=== PATIENT | male | born 1970 | race Caucasian/White ===

== ENCOUNTER 2017-06-25 19:15 | Emergency (ER) | payer OTHER ==
[2017-06-25 19:56] LABS: BASOPHILS % (AUTO) 0.4 %; EOSINOPHILS # (AUTO) 0.3 10^3/uL (0.0-0.7); EOSINOPHILS % (AUTO) 3.3 %; HCT - HEMATOCRIT 43.9 % (42.0-52.0); HGB - HEMOGLOBIN 15.3 g/dL (14.0-18.0); LYMPHOCYTES # (AUTO) 2.2 10^3/uL (1.5-3.5); LYMPHOCYTES % (AUTO) 29.4 %; MEAN CORPUSCULAR HEMOGLOBIN 33.3 pg (27.0-31.0); MEAN CORPUSCULAR HGB CONC 34.9 g/dL (32.0-36.0); MEAN CORPUSCULAR VOLUME 95.5 fL (80.0-94.0); MEAN PLATELET VOLUME 9.3 fL (7.4-11.4); MONOCYTES # (AUTO) 0.8 10^3/uL (0.0-1.0); MONOCYTES % (AUTO) 10.2 %; NEUTROPHILS # (AUTO) 4.3 10^3/uL (1.5-6.6); NEUTROPHILS % (AUTO) 56.7 %; NUCLEATED RED BLOOD CELLS AUTO 0.1 /100WBC; UNCORRECTED WHITE BLOOD COUNT 7.6 x10^3/uL; WHITE BLOOD COUNT 7.6 x10^3/uL (4.8-10.8)
[2017-06-25 20:04] LABS: ALBUMIN/GLOBULIN RATIO 1.4 (1.0-2.2); BILIRUBIN,TOTAL 0.4 mg/dL (0.2-1.0); CREATININE 1.1 mg/dL (0.6-1.2); POTASSIUM 3.9 mmol/L (3.5-5.0)
--- NOTE | 2017-06-25 20:20 | CT Preliminary Report ---
Exam: CT HEAD W/O IMPRESSION: No acute intracranial abnormality. [facility] SITE ID: [id number]
--- NOTE | 2017-06-25 20:22 | CT Report ---
EXAM: CT HEAD EXAM DATE: 06/25/2017 08:06 PM. CLINICAL HISTORY: Syncope, head injury. COMPARISON: None. TECHNIQUE: Multiaxial CT images were obtained from the foramen magnum to the vertex. Reformats: Coron al. IV contrast: None. In accordance with CT protocol optimization, one or more of the following dose reduction techniques w ere utilized for this exam: automated exposure control, adjustment of mA and/or KV based on patient s ize, or use of iterative reconstructive technique. FINDINGS: Parenchyma: No intraparenchymal hemorrhage. No evidence of mass, midline shift, or CT findings of inf arction. [place]-white differentiation is distinct. Extraaxial Spaces: Normal for age. No subdural or epidural collections identified. Ventricles: Normal in size and position. Sinuses and Orbits: Imaged paranasal sinuses, orbits, and mastoids show no significant abnormality. Bones: No evidence of fracture or calvarial defect. Other: None. IMPRESSION: No acute intracranial abnormality. [facility] Referring Provider Line: [phone] SITE ID: [id number]
[2017-06-25] MEDS ORDERED: SODIUM CHLORIDE 0.9% 1,000 ML IV ONE (20:28)
--- NOTE | 2017-06-25 20:28 | CT Preliminary Report ---
Exam: CT CERVICAL SPINE W/O IMPRESSION: No cervical spine fracture or malalignment. [facility] SITE ID: [id number]
[2017-06-25] MEDS ORDERED: MECLIZINE 12.5 MG TABLET PO STA (20:29)
[2017-06-25] MEDS ORDERED: ACETAMINOPHEN 1,000 MG/100 ML 100 ML IV STA (20:29)
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
--- NOTE | 2017-06-25 20:30 | CT Report ---
EXAM: CT CERVICAL SPINE WITHOUT CONTRAST DATE: 06/25/2017 08:05 PM. HISTORY: Fall, neck pain.. COMPARISONS: None. TECHNIQUE: Thin-section axial images were acquired of the cervical spine without contrast. Post-proce ssing: Coronal and sagittal reformats. Other: None. In accordance with CT protocol optimization, one or more of the following dose reduction techniques w ere utilized for this exam: automated exposure control, adjustment of mA and/or KV based on patient s ize, or use of iterative reconstructive technique. FINDINGS: Alignment: Normal. No scoliosis or spondylolisthesis. Bones: No fracture or bone lesion. Interspace Levels/Facets: Musculature: Normal. No fatty atrophy. Other: The paravertebral and prevertebral soft tissues are normal. The lung apices are clear. IMPRESSION: No cervical spine fracture or malalignment. [facility] Referring Provider Line: [phone] SITE ID: [id number]
[2017-06-25] MEDS ORDERED: ACETAMINOPHEN 1,000 MG/100 ML 100 ML IV ONE (20:50)
[2017-06-25] MEDS ORDERED: MECLIZINE 12.5 MG TABLET PO ONE (20:50)
[2017-06-25 21:56] VITALS: BP 136/87
== END 2017-06-25 22:14 | disposition home or self-care (01) ==
LOC: ED 19:15
DX: S00.83XA Contusion of other part of head, initial encounter (principal); W18.39XA Other fall on same level, initial encounter; R42 Dizziness and giddiness; R55 Syncope and collapse
CPT/HCPCS: 36415; 70450; 72125; 80053; 83690; 84484; 85025; 93005; 96365; 99283; 99284; A9270; J0131